=== PATIENT | male | born 1935 | race Caucasian/White ===

== ENCOUNTER 2016-12-17 07:07 | Day surgery (SDC) | payer MEDICARE, OTHER ==
[~2016-12-17] VITALS: Ht 182.9 cm; Wt 79.4 kg
[~2016-12-17 07:07] MED LIST: 0.9% Sodium Chloride 1,000 ML IV SCH; AMLO2.5T PO; ASPI-973 PO; CILO50TA PO; ISOS20TA4 PO; OMEP40CA36 PO; Sodium Chloride LOK Flush 10 mL Syringe IV PRN; TAMS0.4C29 PO; UBID1CAP52 PO; fentaNYL-PF 50 mCg/mL 2 mL Inj IVPUSH PRN
[2016-12-17 07:37] VITALS: BP 175/95; PULSE 60; RESP 14; O2SAT 98
[2016-12-17 08:17] VITALS: BP 143/72; PULSE 54; RESP 14; O2SAT 97
[2016-12-17 08:27] VITALS: BP 154/80; PULSE 55; RESP 14; O2SAT 96
[2016-12-17 08:37] VITALS: BP 156/76; PULSE 56; RESP 16; O2SAT 96
[2016-12-17 08:47] VITALS: BP 172/97; PULSE 58; RESP 16; O2SAT 97
[2016-12-17 08:57] VITALS: BP 196/89; PULSE 60; RESP 14; O2SAT 97
--- NOTE | 2016-12-17 09:33 | ENDO ---
[address] [address] ENDOSCOPY PROCEDURE PATIENT: JANE TORO : 1935 MR#: [id number] ADMIT: 12/17/2016 JOB ID: [id number] DATE OF SERVICE: 12/17/2016 TYPE OF OPERATION: 1. Esophagogastroduodenoscopy with biopsy. 2. Colonoscopy with biopsy. PREOPERATIVE DIAGNOSIS(ES): 1. Escalante esophagus. 2. Family history of colon cancer. POSTOPERATIVE DIAGNOSIS(ES): 1. Mild nonerosive gastritis. 2. A 2 mm sigmoid polyp, removed by cold biopsy forceps. 3. Mild sigmoid diverticulosis. 4. Small internal hemorrhoids. ANESTHESIA: 1. Fentanyl 100 mcg. 2. Versed 5 mg. IV administered. COMPLICATIONS: None. BLOOD LOSS: Minimal. DESCRIPTION OF PROCEDURE: After risks and benefits explained to the patient, informed consent was obtained. After anesthesia administered, upper endoscope was inserted into the mouth intubating to the esophagus, stomach, second portion of duodenum. Mucosa carefully examined. After procedure was done, the scope withdrawn and procedure terminated. Colonoscope was then inserted per rectum to the cecum. Mucosa carefully examined. Prep of the patient was fair. After procedure was done, the scope withdrawn, and procedure terminated. FINDINGS: Upon inspection, the esophagus was normal without masses, ulcers, or lesions. Z-line located 45 cm from incisors. Upon entering stomach, there is mild nonerosive gastritis that was seen. No masses or ulcers were seen. Retroflexion was normal. The duodenal bulb, first and second portion normal. Biopsies taken antral body and distal esophagus. Upon inspection of the anus no masses, hemorrhoids, ulcers, or fissures that were seen. Throughout the entire examination, there was a 2 mm sigmoid polyp removed by cold biopsy forceps. There was also mild sigmoid diverticulosis. Retroflexion showed small internal hemorrhoids. IMPRESSION: 1. Small internal hemorrhoids. 2. Mild sigmoid diverticulosis. 3. A 2 mm colon polyp, removed by cold biopsy forceps. 4. Mild nonerosive gastritis. RECOMMENDATION: Await pathology results. Repeat colonoscopy in five years.
--- NOTE | 2016-12-19 11:56 | PATH ---
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 ANTRUM BIOPSY 2). GASTRIC BODY BIOPSY 3). DISTAL ESOPHAGUS BIOPSY 4). SIGMOID COLON POLYP FINAL DIAGNOSIS: 1.ANTRUM, BIOPSY: GASTRIC ANTRAL-TYPE MUCOSA WITH CHRONIC GASTRITIS. Negative for neutrophilic inflammation. Negative for Helicobacter pylori by immunohistochemical stain. Negative for intestinal metaplasia. Negative for dysplasia and malignancy. 2.GASTRIC BODY, BIOPSY: GASTRIC BODY-TYPE MUCOSA WITH CHRONIC GASTRITIS. Negative for neutrophilic inflammation. Negative for Helicobacter pylori. Negative for intestinal metaplasia. Negative for dysplasia and malignancy. 3.DISTAL ESOPHAGUS, BIOPSY: SQUAMOCOLUMNAR JUNCTIONAL MUCOSA WITH CHRONIC TO FOCALLY ACTIVE INFLAMMATION INVOLVING THE GLANDULAR MUCOSA. Negative for Helicobacter pylori microorganisms. Negative for intestinal metaplasia. Negative for dysplasia and malignancy. 4.SIGMOID COLON POLYP, BIOPSY: HYPERPLASTIC POLYP. ICD10 K63.5 GROSS DESCRIPTION: The specimen is received in four formalin filled containers labeled with the patient's name. 1). The specimen is labeled "antrum" and consists of a 0.3 x 0.3 x 0.2 CM portion of tissue which is entirely submitted in cassette 1A. 2). The specimen is labeled "gastric body" and consists of 2 portions of tissue which aggregate to 0.2 x 0.2 x 0.2 CM. The specimen is entirely submitted in cassette 2A. 3). The specimen is labeled "distal esophagus" and consists of 2 portions of tissue which aggregate to 0.3 x 0.3 x 0.2 CM. The specimen is entirely submitted in cassette 3A. 4). The specimen is labeled "sigmoid colon polyp" and consists of a 0.3 x 0.3 x 0.3 CM portion of tissue which is entirely submitted in cassette 4A. 12/17/2016DC MICRO DESCRIPTION: 1. An immunohistochemical stain was performed to evaluate for Helicobacter pylori microorganisms. The control stain showed appropriate reactivity. This test was developed and its performance characteristics determined by [facility]. It has not been cleared or approved by the [place]. Food and Drug Administration. The FDA has determined that such clearance or approval is not necessary. This test is used for clinical purposes. It should not be regarded as investigational or for research. ICD-9 CODES: CPT CODES: 1: 82651, 97331 2: 78075 3: 95336 4: 64690 Electronically Signed Out Lee Clemente MD [facility] Pathology [facility] [address], [place] [address] Technical component performed at [facility], [facility] [address], [place], [address]
== END 2016-12-17 23:59 | disposition home or self-care (01) ==
LOC: END 07:07
PROVIDERS: ATTEND Internal Medicine Gastroenterology
DX: Z12.11 Encounter for screening for malignant neoplasm of colon (principal); K63.5 Polyp of colon; K57.30 Diverticulosis of large intestine without perforation or abscess without bleeding; K64.8 Other hemorrhoids; Z80.0 Family history of malignant neoplasm of digestive organs; K29.50 Unspecified chronic gastritis without bleeding; K22.70 Barrett's esophagus without dysplasia; I25.10 Atherosclerotic heart disease of native coronary artery without angina pectoris; I73.9 Peripheral vascular disease, unspecified; Z95.5 Presence of coronary angioplasty implant and graft; Z87.891 Personal history of nicotine dependence; Z79.82 Long term (current) use of aspirin
CPT/HCPCS: 43239; 45380; G0500; J2250; J3010; J7030